=== PATIENT | female | born 1950 | race Caucasian/White ===

== ENCOUNTER 2021-06-15 20:07 | Inpatient (IN) | payer OTHER ==
[~2021-06-15] VITALS: Ht 162.6 cm; Wt 113.4 kg
--- NOTE | ~2021-06-15 | CON ---
[address] [address] CONSULTATION Name: SY FITZGERALD Room: [address] IN M.R.#: [id number] Admission: 06/15/21 Attend Phys: Maricruz Fabian Discharge: Date of : 46 Report #: [id number] THIS REPORT FOR: cc: FAM - No family physician/PCP FAM - No family physician/PCP Roman Mccallum MD [facility] ~ DATE OF CONSULTATION: 06/17/2021 HISTORY OF PRESENT ILLNESS: The patient is a 70-year-old single white female who I saw in the hospital after she is noted to be tachycardic. The history is obtained from the patient as well as the current chart. She has never been here to [facility] before. She was brought to [facility] 2 days ago by ambulance. She apparently had been exposed to COVID-19 by her friend. She then complained of being short of breath and nauseated. She was noted to have low oxygen saturation. She did notice some recent loss of taste. She has been coughing, running a fever. She has had no edema. Denied any chest pain, palpitations, syncope or dizziness. PAST MEDICAL HISTORY: Otherwise, significant for hypertension, diabetes. PAST SURGICAL HISTORY: She has had previous hysterectomy, cholecystectomy. MEDICATIONS ON ADMISSION: Consisted of following list: She does take insulin. She does not know the name of the blood pressure pill. ALLERGIES: She has no known drug allergies. FAMILY HISTORY: Her mother and father both had heart disease. SOCIAL HISTORY: She is , lives with daughter in [place]. No smoking or alcohol abuse. REVIEW OF SYSTEMS: No history of stroke, asthma, liver disease, kidney disease, cancer, psychiatric illness or chronic skin condition. PHYSICAL EXAMINATION: GENERAL: Revealed an overweight elderly female lying in bed. She appeared in no distress. VITAL SIGNS: She has a blood pressure of 170/100, pulse is currently 150. She is afebrile. HEENT: She was anicteric. Conjunctivae pink. Mucosa is moist. NECK: Veins not appear distended. No carotid bruits. NECK: Supple. CHEST: Clear to auscultation. HEART: Regular, tachycardia. No [place] [address] CONSULTATION Name: SY FITZGERALD Room: [address] IN [facility].#: [id number] Admission: 06/15/21 Attend Phys: Maricruz Fabian Discharge: Date of : 46 Report #: [id number] ABDOMEN: Obese. EXTREMITIES: Had no edema. Posterior tibial pulse 2+ in the left, could not be palpated in the right. SKIN: Cool and dry. NEUROLOGIC: Nonfocal. IMAGING: Her ECG on admission 2 days ago showed sinus tachycardia with nonspecific ST segment changes. Earlier today, the patient went into a narrow complex tachycardia at 150 beats per minute. A 12-lead ECG suggested PSVT. The patient was administered 6 mg of adenosine intravenously and converted to sinus rhythm. The patient had x-ray on admission that showed cardiomegaly with an infiltrate involving the right lateral lung. She actually had a CT scan of the chest 2 days ago in the Emergency Room that showed no pulmonary embolus. Right-sided pneumonia. LABORATORY WORK: Sodium 135, creatinine 0.8. Troponin sensitivity of 12. BNP 203. Hemoglobin 13.6. Her COVID antigen stat test was negative. Urinalysis: protein, glucose, no bacteria. IMPRESSION AND RECOMMENDATIONS: 1. Proximal supraventricular tachycardia. I would check thyroid function studies and echocardiogram. At this time, I would start sotalol. 2. Hypertension. The patient has been on medications in the past. 3. Diabetes. The patient is on insulin. 4. Pneumonia. By: [id number] Mccallum MD, FACC /nt
[2021-06-15 20:09] VITALS: BP 220/122
[2021-06-15 20:37] LABS: ABSOLUTE BASOPHILS 0.1 thou/uL (0.0-0.2); ABSOLUTE EOSINOPHILS 0.2 thou/uL (0.0-0.7); ABSOLUTE LYMPHOCYTES 1.8 thou/uL (0.8-5.3); ABSOLUTE MONOCYTES 0.8 thou/uL (0.0-1.2); ABSOLUTE NEUTROPHILS 7.6 thou/uL (1.6-8.1); EOSINOPHILS 1.5 %; HEMATOCRIT 42.4 % (37.0-47.0); HEMOGLOBIN 14.5 gm/dL (12.0-15.0); LYMPHOCYTES 17.6 %; MCH 29.6 pg (26.0-34.0); MCHC 34.3 g/dL (28.0-37.0); MCV 86.4 fL (80.0-100.0); MONOCYTES 7.2 %; MPV 8.1 fl. (7.2-11.1); NUCLEATED RBCS 0 /100WBC; PLATELET COUNT* 439 thou/uL (150-400); POLYS 72.7 %; RDW-CV 14.2 % (10.5-14.5); WBC 10.4 thou/uL (4.0-11.0)
[2021-06-15 20:41] LABS: CALCIUM 9.2 mg/dL (8.5-10.1); POTASSIUM 3.7 mmol/L (3.5-5.1)
[2021-06-15 20:51] LABS: ALBUMIN 3.1 g/dL (3.4-5.0); MAGNESIUM 1.7 mg/dL (1.8-2.4); TOTAL BILIRUBIN 0.8 mg/dL (<0.1-1.0); TOTAL PROTEIN 7.9 g/dL (6.4-8.2)
[2021-06-15 21:49] LABS: URINE BILIRUBIN NEGATIVE (Negative); URINE BLOOD TRACE (Negative); URINE CLARITY CLEAR; URINE COLOR YELLOW; URINE GLUCOSE-RANDOM 3+ (Negative); URINE KETONES TRACE (Negative); URINE LEUKOCYTES-REFLEX NEGATIVE (Negative); URINE NITRITE-REFLEX NEGATIVE (Negative); URINE PROTEIN 2+ (Negative); URINE UROBILINOGEN 0.2 E.U./dl (0.2-1.0)
[2021-06-15 21:58] LABS: CASTS None Seen /LPF (None Seen); CRYSTALS None Seen /LPF (None Seen); MUCUS None Seen strn/LPF (None Seen); SQUAMOUS 0-3 Few /LPF (0-3)
[2021-06-15 21:59] LABS: BACTERIA-REFLEX None Seen /HPF (None Seen); URINE RBC None Seen /HPF (0-2); URINE WBC-REFLEX 0-5 Rare /HPF (0-5)
[2021-06-15 22:12] LABS: BE -0.3 mmol/L (-2 to +3); PCO2 38.1 mmHg (35.0-45.0); pH 7.417 (7.340-7.450)
[2021-06-15 22:15] LABS: PO2 167.8 mmHg (75.0-100.0)
[2021-06-16 00:18] VITALS: BP 186/114
[2021-06-16 00:52] VITALS: BP 177/108
[2021-06-16 03:59] VITALS: BP 180/105
--- NOTE | 2021-06-16 05:08 | NUR ---
PT UO IN FLOOR AT 0045. SHE IS HARD TO UNDERSTAND WHILE TALKING SHE DENIES A HISTORY OF STROKE. SHE URINATES FREQUENTLY (EVERY 15 MINUTES) SHE SAYS SHE DOES THIS AT HOME TOO. SHE IS AWARE THAT SHE IS TACHYCARDIC AND SAYS SHE HAS BEEN FOR AWHILE. HER RECENTLY PASSED SO THERE IS SOME DEPRESSION AND COPING ISSUES WITH THAT AND MAY CONTRIBUTE TO HER OWN LACK OF SELF CARE. SHE SAYS SHE DOES NOT TAKE ANY MEDICATIONS. SHE RECEIVED FLUIDS SCHEDULED. ER NURSE SAYS SHE RECEIVED INSULIN IN ER BEFORE COMING TO TELE. THIS PATIENT SEEMS TO BE ALERT AND ORIENTED BUT MAY HAVE SOME COGNITIVE ISSUES. WHEN ASKED ABOUT HER SPEECH SHE JUST SAYS SHE HAS A HARD TIME TALKING. SINUS TACH ON MONITOR. WILL CONTINUE TO MONITOR.
[2021-06-16 08:30] VITALS: BP 187/110
--- NOTE | 2021-06-16 10:49 | EKG ---
[place] [address] ELECTROCARDIOGRAM REPORT Name: SY FITZGERALD Room: [address] ADM IN M.R.#: [id number] Admission: 06/15/21 Attend Phys: Deric Strickland Discharge: Date of : 46 Date of Service: 06/15/212003 Report #: [id number] THIS REPORT FOR: //name// [facility] ED Test Date: 2021-06-15 Test Time: 20:04:44 Pat Name: YS FITZGERALD Department: Room: [address] Gender: F Clinical Nursing Coordinator: VALENTINE : 1950 Requested By: Lakisha Le Order Number: [id number] MD: Roman Mccallum Measurements Intervals [place] Rate: 155 P: 27 [place]: 136 QRS: 45 QRSD: 71 T: 58 QT: 336 QTc: 540 Interpretive Statements Supraventricular tachycardia ST depression, probably rate related Baseline wander in lead(s) V2,V5,V6 No previous ECG available for comparison Electronically Signed On 06-16-2021 10:49:42 CDT by Roman Mccallum [email or web address] <ELECTRONICALLY SIGNED> By: Roman Mccallum MD, FAC 06/16/21 1049 03 03 Roman Mccallum MD, [facility] /EPI
--- NOTE | 2021-06-16 10:50 | EKG ---
[place] [address] ELECTROCARDIOGRAM REPORT Name: SY FITZGERALD Room: [address] ADM IN .R.#: [id number] Admission: 06/15/21 Attend Phys: Deric Strickland Discharge: Date of : 46 Date of Service: 06/15/212034 Report #: [id number] THIS REPORT FOR: //name// [facility] ED Test Date: 2021-06-15 Test Time: 20:35:24 Pat Name: SY FITZGERALD Department: Room: [address] Gender: F Client Experience Manager: VALENTINE : 1950 Requested By: Lakisha Le Order Number: [id number] Reading MD: Roman Mccallum Measurements Intervals [place] Rate: 117 P: 48 [place]: 176 QRS: 38 QRSD: 78 T: 44 QT: 320 QTc: 447 Interpretive Statements Sinus tachycardia Baseline wander in lead(s) V2,V5 Compared to ECG 06/15/2021 20:04:44 Supraventricular tachycardia no longer present ST (T wave) deviation no longer present Electronically Signed On 06-16-2021 10:50:32 CDT by Roman Mccallum [email or web address] <ELECTRONICALLY SIGNED> By: Roman Mccallum MD, FAC 06/16/21 1050 34 34 Roman Mccallum MD, FAC /EPI
[2021-06-16 12:00] VITALS: BP 190/116
--- NOTE | 2021-06-16 14:13 | NUR ---
Pt is A&O. Resides at home with dtr. Independent. Dtr completes IADLs. Pt uses a cane for mobility. No home o2. No hx of HH or SNF. Pt's goal is home at dc, CM to left VM for Pt's dtr to discuss dispo. Pt hypoxic, covid negative. Anticipate dc in a few days.
[2021-06-16 16:38] VITALS: BP 217/105
[2021-06-17] VITALS (8 sets, daily range): BP systolic 162–194; BP diastolic 46–120
[2021-06-17 04:01] LABS: HEMOGLOBIN 13.6 gm/dL (12.0-15.0); MCH 29.5 pg (26.0-34.0); MCHC 34.8 g/dL (28.0-37.0); MCV 84.7 fL (80.0-100.0); MPV 7.7 fl. (7.2-11.1); RBC 4.6 mil/uL (4.20-5.00); RDW-CV 14.1 % (10.5-14.5)
[2021-06-17 04:10] LABS: CREATININE 0.8 mg/dL (0.6-1.3); POTASSIUM 3.9 mmol/L (3.5-5.1)
--- NOTE | 2021-06-17 09:08 | NUR ---
ASSUMED CARE OF PT THIS AM AROUND 0715- BRIDAL STYLIST SALES CONSULTANT IN PLACE TRACING SR/ST- UPON ASSESSMENT PT NOTED TO BE RESTING IN BED- PT A&O X3-4, SLOW RESPNSE TIME NOTED- INCONT VS CONT OF B/B- Q [address] INDICATED- LCTA, RESP EVEN AND UN-LABORED- VSS, O2 SAT 92% ON RA- ABD SOFT/OBESE/NON-TENDER, BS X4 QUADS- LAST BM REPORTED 06/16/21- SET UP ASSIST REQUIRED WITH MEALS, GOOD PO INTAKE NOTED THIS AM- BS MONITORED ORDERED, WITH SSI PRESCRIBED- IV NOTED TO LEFT FA INTACT, IVF INFUSSING PRESCRIBED-IV ABT GIVEN THIS AM PRESCRIBED- PT DENIES ANY C/O PAIN/DISCOMFORT- CALL LIGHT AND PERSONAL BELONGINGS WITH IN REACH- HOURLY ROUNDS IN PLACE R/T SAFETY/NEEDS- ALL NEEDS MET AT THIS TIME
--- NOTE | 2021-06-17 11:00 | EKG ---
[place] [address] ELECTROCARDIOGRAM REPORT Name: SY FITZGERALD Room: [address] ADM IN M.R.#: [id number] Admission: 06/15/21 Attend Phys: Deric Strickland Discharge: Date of : 46 Date of Service: 06/17/21712 Report #: [id number] THIS REPORT FOR: //name// [facility] Test Date: 2021-06-17 Test Time: 07:13:38 Pat Name: SY FITZGERALD Department: Room: [address] Gender: F Hospital Scientist: PP : 1950 Requested By: Melanie Durand Order Number: [id number] Reading MD: Roman Mccallum Measurements Intervals [place] Rate: 122 P: 52 [place]: 159 QRS: 44 QRSD: 83 T: 41 QT: 309 QTc: 441 Interpretive Statements Sinus tachycardia Low voltage, precordial leads Consider RVH or posterior infarct Compared to ECG 06/15/2021 20:35:24 Low QRS voltage now present Myocardial infarct finding now present Electronically Signed On 06-17-2021 11:00:35 CDT by Roman Mccallum [email or web address] <ELECTRONICALLY SIGNED> By: Roman Mccallum MD, FAC 06/17/21 1100 2 2 Roman Mccallum MD, FAC /EPI
--- NOTE | 2021-06-17 13:05 | EKG ---
[place] [address] ELECTROCARDIOGRAM REPORT Name: SY FITZGERALD Room: [address] ADM IN M.R.#: [id number] Admission: 06/15/21 Attend Phys: Deric Strickland Discharge: Date of : 46 Date of Service: 06/17/21 1216 Report #: [id number] THIS REPORT FOR: //name// [facility] Test Date: 2021-06-17 Test Time: 12:16:16 Pat Name: SY FITZGERALD Department: Room: [address] Gender: F Director Information Security: JOSÉ MIGUEL : 1950 Requested By: Melanie Durand Order Number: [id number] Reading MD: Roman Mccallum Measurements Intervals [place] Rate: 157 P: 221 [place]: 81 QRS: 47 QRSD: 70 T: 35 QT: 323 QTc: 523 Interpretive Statements Supraventricular tachycardia septal infarct, old ST depression, probably rate related Compared to ECG 06/17/2021 07:13:38 ST (T wave) deviation now present Sinus tachycardia no longer present Electronically Signed On 06-17-2021 13:05:18 CDT by Roman Mccallum [email or web address] <ELECTRONICALLY SIGNED> By: Roman Mccallum MD, FAC 06/17/21 1305 1216 1216 Roman Mccallum MD, FAC /EPI
[2021-06-17 13:17] LABS: MAGNESIUM 1.8 mg/dL (1.8-2.4); POTASSIUM 3.7 mmol/L (3.5-5.1)
--- NOTE | 2021-06-17 13:40 | NUR ---
Therapy evals pending. Ivabx. Off o2. No weekend dc planned. ?HH at dc
--- NOTE | 2021-06-17 16:31 | 2DMMODE ---
[place] [address] 2 D/M-MODE ECHOCARDIOGRAM Name: SY FITZGERALD Room: [address] IN [place].#: [id number] Admission: 06/15/21 Attend Phys: Deric Strickland Discharge: Date of : 46 Date of Service: 06/17/21 1630 Report #: [id number] THIS REPORT FOR: cc: FAM - No family physician/PCP FAM - No family physician/PCP Roman Mccallum MD [facility] ~ APPROVED REPORT Study performed: 06/17/2021 15:46:23 EXAM: Comprehensive 2D, Doppler, and color-flow Echocardiogram Patient Location: In-Patient Room #: [facility] Status: routine BSA: 2.15 HR: 97 bpm BP: 175/102 mmHg Rhythm: NSR Other Information Study Quality: Good Indications Abnormal ECG 2D Dimensions IVSd: 10.68 (7-11mm) LVOT Diam: 18.59 (18-24mm) LVDd: 52.99 mm PWd: 10.65 (7-11mm) Ascending Ao: 35.69 (22-36mm) LVDs: 37.15 (25-40mm) Aortic Root: 29.58 mm Volumes Left Atrial Volume (Systole) LA ESV Index: 19.10 mL/m2 Aortic Valve AoV Peak Christiano.: 1.55 m/s AO Peak Gr.: 9.64 mmHg LVOT Max P.94 mmHg AO Mean Gr.: 5.90 mmHg LVOT Mean P.95 mmHg LVOT Max V: 0.99 m/s AO V2 VTI: 26.61 cm LVOT Mean V: 0.64 m/s DELMA (VTI): 1.77 cm2 LVOT V1 VTI: 17.38 [place] [address] 2 D/M-MODE ECHOCARDIOGRAM Name: SY FITZGERALD Room: [address] IN ..#: [id number] Admission: 06/15/21 Attend Phys: Deric Strickland Discharge: Date of : 46 Date of Service: 06/17/21 1630 Report #: [id number] TDI Medial E' Christiano.: 0.07 m/s Lateral E' Christiano.: 0.07 m/s Pulmonary Valve PV Peak Christiano.: 0.84 m/s PV Peak Gr.: 2.80 mmHg Tricuspid Valve RAP Estimate: 5.00 mmHg TR Peak Gr.: 21.12 mmHg RVSP: 26.00 mmHg PA Pressure: 26.00 mmHg Left Ventricle The left ventricle is normal size. There is normal LV segmental wall motion. There is normal left ventricular wall thickness. Left ventricular systolic function is normal. The left ventricular ejection fraction is within the normal range. LVEF is 55-60%. This study is not technically sufficient to allow evaluation of the LV diastolic function. Right Ventricle The right ventricle is normal size. The right ventricular systolic function is normal. Atria The left atrium size is normal. The right atrium size is normal. Aortic Valve Mild aortic valve sclerosis. No aortic regurgitation is present. There is no aortic valvular stenosis. Mitral Valve There is mitral annular calcification. The mitral valve is normal in structure. There is no mitral valve regurgitation noted. Tricuspid Valve The tricuspid valve is normal in structure. Trace tricuspid regurgitation. No pulmonary hypertension. Pulmonic Valve Pulmonic valve is not well visualized. There is no pulmonic valvular regurgitation. Great Vessels The aortic root is normal in size. [place] [address] 2 D/M-MODE ECHOCARDIOGRAM Name: SY FITZGERALD Room: [address] [place] [facility].#: [id number] Admission: 06/15/21 Attend Phys: Deric Strickland Discharge: Date of : 46 Date of Service: 06/17/211629 Report #: [id number] visualized. Pericardium There is no pericardial effusion. <Conclusion> LVEF is 55-60%. Mild aortic valve sclerosis. <ELECTRONICALLY SIGNED> By: Roman Mccallum MD, [facility] [id number] Roman Mccallum MD, FACC /INF
[2021-06-18] VITALS (8 sets, daily range): BP systolic 127–195; BP diastolic 78–105
[2021-06-18 02:06] LABS: GLYCOHEMOGLOBIN (HGB A1C) 10.5 % (4.8-5.6)
[2021-06-18 04:37] LABS: HEMOGLOBIN 14.1 gm/dL (12.0-15.0); MCH 29.1 pg (26.0-34.0); MCHC 33.6 g/dL (28.0-37.0); MCV 86.6 fL (80.0-100.0); RBC 4.85 mil/uL (4.20-5.00); WBC 11.5 thou/uL (4.0-11.0)
[2021-06-18 04:52] LABS: CALCIUM 9.1 mg/dL (8.5-10.1); CREATININE 0.8 mg/dL (0.6-1.3); POTASSIUM 4.5 mmol/L (3.5-5.1)
--- NOTE | 2021-06-18 09:14 | NUR ---
ASSUMED CARE OF PT THIS AM AROUND 07- ENTRY LEVEL MANAGEMENT IN PLACE ORDERED, TRACING ST- UPON ASSESSMENT PT NOTED TO BE RESTING IN BED- PT A&O 4, SLOW TO RESPOND, FORGETFULL- CONT VS INCONT OF BOWEL; RODRIGUEZ IN PLACE D/D CLEAR YELLOW URINE- Q 2HOUR TURNS IN PLACE INDICATED-LCTA, DYSPNEA NOTED ON EXERTION- BP NOTED TO STILL BE ELEVATED NEW ORDERS NOTED THIS AM PER CARDIO FOR NORVASC TO BE INCREASED TO 10MG DAILY AND MAXIDE DAILY ADDED AND GIVEN THIS AM PRESCRIBED, O2 SAT 98% ON RA- ABD SOFT/OBESE/NON-TENDER, BS X4 QUADS- IV NOTED TO LEFT FA INTACT AND SL; IV NOTED TO LEFT HAND INTACT WITH IVF INFUSSING PRESCRIBED-IV ABT GIVEN THIS AM PRESCRIBED- SET UP ASSIST REQUIRED WITH MEALS, GOOD PO INTAKE NOTED-PT DENIES ANY C/O PAIN- CALL LIGHT AND PERSONAL BELONGINGS WITH IN REACH- HOURLY ROUNDS IN PLACE R/T SAFETY/NEEDS- ALL NEEDS MET AT THIS TIME
[2021-06-19] VITALS: BP 142/79
[2021-06-19 04:00] VITALS: BP 134/76
[2021-06-19 04:42] LABS: HEMATOCRIT 39.9 % (37.0-47.0); HEMOGLOBIN 13.5 gm/dL (12.0-15.0); MCHC 33.9 g/dL (28.0-37.0); MCV 85.8 fL (80.0-100.0); RBC 4.66 mil/uL (4.20-5.00); RDW-CV 14.2 % (10.5-14.5)
[2021-06-19 05:01] LABS: CALCIUM 9.1 mg/dL (8.5-10.1); CREATININE 0.8 mg/dL (0.6-1.3)
[2021-06-19 07:55] VITALS: BP 98/61
--- NOTE | 2021-06-19 09:32 | NUR ---
ASSUMED CARE OF PT THIS AM AROUND 07- TENTER IN PLACE ORDERED, TRACING SR- UPON ASSESSMENT PT NOTED TO BE RESTING IN BED- PT A&O X4, SLOW RESPONSES- CONT OF BOWEL, RODRIGUEZ IN PLACE D/D YELLOW URINE- A X1 WITH TRANSFERS- DIMINSHED IN RIGHT UPPER LOBES, CLEAR TO [place]LEY, FINE CRACKLES TO LLL- DYSPNEA NOTED ON EXERTION- SEEMS TO BE CALMER THIS AM AT REST- VSS, O2 SAT 99% ON 2L VIA NC- ABD SOFT/OBESE/NON-TENDER, BS X4 QUADS- BM NOTED 06/18/21- IV NOTED TO LEFT FA AND LEFT HAND INTACT AND SL; IV BT GIVEN THIS AM PRESCRIBED- SET UP ASSIST REQUIRED WITH MEALS, GOOD PO INTAKE NOTED THIS AM- BS MONITORED ORDERED WITH SCHEDULED AND SSI GIVEN PRESCRIBED- CALL LIGHT AND PERSONAL BELONGINGS WITH IN REACH- BED ALARM IN PLACE AND WORKING FOR PT SAFETY- HOURLY ROUNDS IN PLACE R/T SAFETY/NEEDS- ALL NEEDS MET AT THIS TIME
[2021-06-19 12:00] VITALS: BP 117/52
[2021-06-19 16:00] VITALS: BP 139/88
[2021-06-19 22:20] VITALS: BP 141/76
[2021-06-20] VITALS (7 sets, daily range): BP systolic 127–151; BP diastolic 68–72
[2021-06-20 04:07] LABS: HEMATOCRIT 35.1 % (37.0-47.0); HEMOGLOBIN 12.1 gm/dL (12.0-15.0); MCH 29.5 pg (26.0-34.0); MCHC 34.4 g/dL (28.0-37.0); MCV 85.8 fL (80.0-100.0); RBC 4.09 mil/uL (4.20-5.00); RDW-CV 14.5 % (10.5-14.5); WBC 10.6 thou/uL (4.0-11.0)
[2021-06-20 04:40] LABS: POTASSIUM 4.1 mmol/L (3.5-5.1)
--- NOTE | 2021-06-20 11:11 | NUR ---
Nutrition: Pt admitted with SOA and nausea. Seen for high BMI. Wt: 250#. RN stated pt is eating well. Pt seemed a little confused. CHO controlled diet. A1c 10.5%, BG 135-209, alb 3.1. Meds, hx noted. Continue CHO controlled diet. GOALS: >75% of meals, tight BG control. Mild risk.
--- NOTE | 2021-06-20 11:35 | EKG ---
[place] [address] ELECTROCARDIOGRAM REPORT Name: SY FITZGERALD Room: [address] ADM IN M.R.#: [id number] Admission: 06/15/21 Attend Phys: Deric Strickland Discharge: Date of : 46 Date of Service: 06/18/21 0744 Report #: [id number] THIS REPORT FOR: //name// [facility] Test Date: 2021-06-18 Test Time: 07:44:43 Pat Name: SY FITZGERALD Department: Room: [address] Gender: F Solder Sprayer[facility] 1950 Requested By: Roman Mccallum Order Number: [id number] Reading MD: Raad Iqbal Measurements Intervals [place] Rate: 107 P: 34 [place]: 189 QRS: 48 QRSD: 77 T: 64 QT: 342 QTc: 457 Interpretive Statements Sinus tachycardia Nonspecific ST-T abnormalities Compared to ECG 06/17/2021 12:16:16 Supraventricular tachycardia no longer present Myocardial infarct finding no longer present ST (T wave) deviation still present Electronically Signed On 06-20-2021 11:35:02 CDT by Raad Iqbal [email or web address] <ELECTRONICALLY SIGNED> By: Raad Iqbal MD, [facility] 06/20/21 1135 0744 0744 Raad Iqbal MD, [facility] /EPI
--- NOTE | 2021-06-20 11:44 | EKG ---
[place] [address] ELECTROCARDIOGRAM REPORT Name: SY FITZGERALD Room: [address] ADM IN .R.#: [id number] Admission: 06/15/21 Attend Phys: Deric Strickland Discharge: Date of : 46 Date of Service: 06/19/21 1212 Report #: [id number] THIS REPORT FOR: //name// [facility] Test Date: 2021-06-19 Test Time: 12:12:49 Pat Name: SY FITZGERALD Department: Room: [address] Gender: F Verify Rep: SB : 1950 Requested By: Dorothy Galvan Order Number: [id number] Reading MD: Raad Iqbal Measurements Intervals [place] Rate: 93 P: 38 [place]: 173 QRS: 34 QRSD: 79 T: 71 QT: 364 QTc: 453 Interpretive Statements Sinus rhythm Ventricular premature complex Probable left atrial enlargement Compared to ECG 06/18/2021 07:44:43 Ventricular premature complex(es) now present Sinus tachycardia no longer present ST (T wave) deviation no longer present Electronically Signed On 06-20-2021 11:44:44 CDT by Raad Iqbal [email or web address] <ELECTRONICALLY SIGNED> By: Raad Iqbal MD, FAC 06/20/21 1144 121 121 Raad Iqbal MD, FAC /EPI
--- NOTE | 2021-06-20 11:53 | EKG ---
[place] [address] ELECTROCARDIOGRAM REPORT Name: SY FITZGERALD Room: [address] ADM IN M.R.#: [id number] Admission: 06/15/21 Attend Phys: Deric Strickland Discharge: Date of : 46 Date of Service: 06/20/21 0444 Report #: [id number] THIS REPORT FOR: //name// [facility] Test Date: 2021-06-20 Test Time: 04:44:51 Pat Name: SY FITZGERALD Department: Room: [address] Gender: F Manager Coding: : 1950 Requested By: Dorothy Galvan Order Number: [id number] MD: Raad Iqbal Measurements Intervals [place] Rate: 83 P: 39 [place]: 191 QRS: 33 QRSD: 80 T: 51 QT: 405 QTc: 476 Interpretive Statements Sinus rhythm Ventricular premature complex Compared to ECG 06/19/2021 12:12:49 No significant changes Electronically Signed On 06-20-2021 11:53:15 CDT by Raad Iqbal [email or web address] <ELECTRONICALLY SIGNED> By: Raad Iqbal MD, [facility] 06/20/21 1153 0444 0444 Raad Iqbal MD, [facility] /EPI
--- NOTE | 2021-06-20 14:47 | NUR ---
Pt to dc to home today, CM to fax HH orders to [facility]
[2021-06-20] MEDS ORDERED: TRIAMTERENE-HC1 EAC1 PO (14:49)
[2021-06-20] MEDS ORDERED: SORINE 80 MG TA80 M1 PO (14:49)
[2021-06-20] MEDS ORDERED: NORVASC5 MG PO (14:49)
--- NOTE | 2021-06-20 18:43 | NUR ---
PATIENT discharge instruction completed including medications . IV line discontinued before discharge. No issue voiced at this time .
== END 2021-06-20 17:15 | disposition home health service (06) | DRG 871 ==
LOC: M.ERS 20:07 → M.2W 21:06 → M.TBA-ER 21:06 → M.2W 06-16 00:36
PROVIDERS: Emergency Medicine; Internal Medicine; ADMIT Internal Medicine; ATTEND Internal Medicine
DX: A41.9 Sepsis, unspecified organism (principal); J18.9 Pneumonia, unspecified organism; J96.01 Acute respiratory failure with hypoxia; I47.1 Supraventricular tachycardia; Z20.822 Contact with and (suspected) exposure to COVID-19; Z79.899 Other long term (current) drug therapy; I16.0 Hypertensive urgency; E83.42 Hypomagnesemia; I10 Essential (primary) hypertension; E11.65 Type 2 diabetes mellitus with hyperglycemia; Z79.4 Long term (current) use of insulin; Z90.49 Acquired absence of other specified parts of digestive tract; Z90.710 Acquired absence of both cervix and uterus